=== PATIENT | male | born 1990 | race Caucasian/White ===

== ENCOUNTER → 2022-11-10 | Outpatient (CLI) | payer OTHER ==
--- NOTE | 2022-11-12 05:39 | MR ---
EXAMINATION TYPE: MR lumbar spine wo con DATE OF EXAM: 11/10/2022 COMPARISON: NONE HISTORY: Low back pain that radiates down both legs. TECHNIQUE: Multiplanar, multisequence imaging of the lumbar spine is performed without IV contrast. FINDINGS: Sagittal images of the lumbar spine show vertebral body heights and alignment to appear sat isfactory. There is disc desiccation L3-L4 and L4-L5 levels. Disc space heights are fairly well prese rved. The conus medullaris is normal in position and signal ending at mid L1 level. The bone marrow signal intensity is within normal limits. Axial images show T12-L1 through L2-L3 level to appear within normal limits. Axial images at L3-L4 level shows tiny left paracentral disc protrusion mildly effacing the anterolat eral thecal sac on axial image 13. Patent bilateral neural foramina. Axial images at L4-L5 show small central disc protrusion or spinal canal is preserved. There is annul ar tear. Mild facet arthropathy bilaterally. Bilateral neural foramina are patent. Axial images at L5-S1 show increased epidural fat. No disc herniation is evident. Paraspinal muscle bulk is maintained. IMPRESSION: Mild degenerative changes at L3-L4 and L4-L5 level as detailed above.
== END | disposition home or self-care (01) ==
LOC: RADMRIMAIN 21:00
PROVIDERS: ATTEND Family Medicine
DX: M51.16 Intervertebral disc disorders with radiculopathy, lumbar region (principal)
CPT/HCPCS: 72148